=== PATIENT | female | born 1970 | race Caucasian/White ===

== ENCOUNTER 2018-01-20 10:58 | Emergency (ER) | payer OTHER ==
--- NOTE | 2018-01-20 11:37 | ED ---
HPI Chest Pain - HPI Summary HPI Summary: Patient is a 47 y/o female who presents to the ED c/o CP. She states she was sitting down at work this morning when she suddenly had 5-6/10 CP that radiated to her jaw, back, and armpits. Patient went to the school nurse who heard an abnormal HR and recommended she come to the ED. She also c/o nausea when standing up and cold hands. Patient denies any vomiting, diaphoresis, or near- syncope. The CP is currently completely resolved. She might have HLD but is unsure. - History of Current Complaint Chief Complaint: EDChestWallPain Hx Obtained From: Patient Onset/Duration: Started Hours Ago - [employer], Resolved Timing: Intermittent Initial Severity: Moderate - 5-6/10 Current Severity: None Pain Intensity: 0 Pain Scale Used: 0-10 Numeric Chest Pain Location: Diffuse Chest Pain Radiates: Yes Chest Pain Radiates To:: Back, Jaw, Other - Armpit Aggravating Factor(s): Nothing Alleviating Factor(s): Spontaneous Resolution Associated Signs and Symptoms: Positive: Chest Pain, Recent Stress, Nausea. Negative: Syncope, Diaphoresis, Vomiting Related History: Obesity - Allergy/Home Medications Allergies/Adverse Reactions: Allergies Allergy/AdvReac Type Severity Reaction Status Date / Time MS Shellfish Allergy Allergy throat Verified 08/17/14 06:47 [Shellfish Allergy] closes/itchiness in throat Home Medications: Home Medications Escitalopram (NF) [Lexapro 20 mg (NF)] 20 mg PO DAILY 01/20/18 [History Confirmed 01/20/18] Omeprazole CAP* [Prilosec CAP* 20 MG] 20 mg PO DAILY 01/20/18 [History Confirmed 01/20/18] PMH/Surg Hx/FS Hx/Imm Hx Endocrine/Hematology History: Denies: Hx Diabetes Cardiovascular History: Denies: Hx Hypertension Respiratory History: Reports: Hx Sleep Apnea - DOESN'T USE CPAP GI History: Reports: Hx Gastroesophageal Reflux Disease - ON DAILY MEDS Sensory History: Reports: Hx Contacts or Glasses - GLASSES Opthamlomology History: Reports: Hx Contacts or Glasses - GLASSES Neurological History: Reports: Hx Migraine - USUALLY 1-2 x YEAR, USES ZOMEG Psychiatric History: Reports: Hx Anxiety, Hx Depression - ON DAILY LEXAPRO - Surgical History Surgery Procedure, Year, and Place: 2007 [facility]. 2002 RT [facility] Hx Anesthesia Reactions: No Infectious Disease History: No Infectious Disease History: Denies: Traveled Outside the [place] in Last 30 Days - Family History Known Family History: Positive: Cardiac Disease, Diabetes, Other - [place] - Social History Alcohol Use: Rare Alcohol Amount: FEW DRINKS/YEAR Hx Substance Use: No Substance Use Type: Reports: None Hx Tobacco Use: Yes Smoking Status (MU): Former Smoker Type: Cigarettes Amount Used/How Often: 2 PPD Length of Time of Smoking/Using Tobacco: 26 YRS Have You Smoked in the Last Year: No Review of Systems Positive: Other - Cold hands. Negative: Skin Diaphoresis Positive: Chest Pain Positive: Nausea. Negative: Vomiting Negative: Syncope All Other Systems Reviewed And Are Negative: Yes Physical Exam - Summary Physical Exam Summary: VITAL SIGNS: Reviewed. GENERAL: Patient is a well-developed and nourished FEMALE who is lying comfortable in the stretcher. Patient is not in any acute respiratory distress. HEAD AND FACE: No signs of trauma. No ecchymosis, hematomas or skull depressions. No sinus tenderness. EYES: PERRLA, EOMI x 2, No injected conjunctiva, no nystagmus. EARS: Hearing grossly intact. Ear canals and tympanic membranes are within normal limits. MOUTH: Oropharynx within normal limits. NECK: Supple, trachea is midline, no adenopathy, no JVD, no carotid bruit, no c- spine tenderness, neck with full ROM. CHEST: Symmetric, no tenderness at palpation LUNGS: Clear to auscultation bilaterally. No wheezing or crackles. CVS: Regular rate and rhythm, S1 and S2 present, no murmurs or gallops appreciated. ABDOMEN: Soft, non-tender. No signs of distention. No rebound no guarding, and no masses palpated. Bowel sounds are normal. EXTREMITIES: FROM in all major joints, no edema, no cyanosis or clubbing. NEURO: Alert and oriented x 3. No acute neurological deficits. Speech is normal and follows commands. SKIN: Dry and warm Triage Information Reviewed: Yes Vital Signs On Initial Exam: Initial Vitals Temp Pulse Resp BP Pulse Ox 98 F 73 16 169/82 99 01/20/18 11:00 01/20/18 11:00 01/20/18 11:00 01/20/18 11:00 01/20/18 11:00 Vital Signs Reviewed: Yes Diagnostics - Vital Signs Vital Signs Temp Pulse Resp BP Pulse Ox 01/20/18 11:00 98 F 73 16 169/82 99 - Laboratory Result Diagrams: 01/20/18 11:48 01/20/18 11:48 Lab Statement: Any lab studies that have been ordered have been reviewed, and results considered in the medical decision making process. - Radiology CXR Xray Interpretation: No Acute Changes - NO EVIDENCE FOR ACTIVE CARDIOPULMONARY DISEASE. Radiology Interpretation Completed By: Radiologist - EKG 11:27 Cardiac Rate: NL - 67 bpm EKG Rhythm: Sinus Rhythm EKG Interpretation: No ST elevations Chest Pain Course/Dx - Course Assessment/Plan: Patient is a 47 y/o female who presents to the ED c/o CP. She states she was sitting down at work this morning when she suddenly had 5-6/10 CP that radiated to her jaw, back, and armpits. Patient went to the school nurse who heard an abnormal HR and recommended she come to the ED. She also c/ o nausea when standing up and cold hands. Patient denies any vomiting, diaphoresis, or near-syncope. The CP is currently completely resolved. She might have HLD but is unsure. Blood work without any significant abnormality, 2 troponins 4 hours apart as 0.00. EKG shows no ST elevations. Chest x-ray shows no acute cardiopulmonary abnormality. The patient continues to be asymptomatic. She does not have any chest pain at this point. See she doesn't have any comorbidities the patient was discharged home with follow-up with primary care physician. The heart to score is equal to 0. I discussed all the findings and test results with the patient. Patient was instructed to return to the emergency room immediately if any of the symptoms return or worsens. Plan of care was discussed with the patient and understands and agrees. All questions were answered at patient satisfaction. There were no further complaints or concerns. Lung exam before discharge: CTA B/L. Good air exchange. No wheezing or crackles heard. CVS: S1 and S2 present. No murmurs appreciated. Patient is alert and oriented x 3. Patient is hemodynamically stable. Patient will be discharged home with follow up PCP in the next 2-3 days - Chest Pain Differential Diagnosis/HQI/PQRI: Acute VA, ACS, Angina, CHF, Chest Wall, GI Disease, Lower Respiratory Infection, Pulmonary Edema - Diagnoses Provider Diagnoses: Atypical chest pain Discharge - Sign-Out/Discharge Documenting (check all that apply): Patient Departure - Discharge - Discharge Plan Condition: Stable Disposition: HOME Patient Education Materials: Chest Pain (ED) Referrals: Samuel Ramirez MD [Primary Care Provider] - 3 Days Additional Instructions: FOLLOW UP WITH YOUR PRIMARY CARE PROVIDER WITHIN ONE WEEK FOR HIGH BLOOD PRESSURE NOTED TODAY. RETURN TO THE ED FOR ANY WORSENING OR NEW SYMPTOMS. - Billing Disposition and Condition Condition: STABLE Disposition: Home - Attestation Statements Document Initiated by Stephanieibe: Yes Documenting Scribe: Elizabeth Live Provider For Whom Devin is Documenting (Include Credential): Maximiliano Hancock MD Scribe Attestation: Elizabeth Forbes, scribed for Maximiliano Hancock MD on 01/21/18 at 0943. Scribe Documentation Reviewed: Yes Provider Attestation: The documentation as recorded by the Elizabeth patton accurately reflects the service I personally performed and the decisions made by , Maximiliano Hancock MD
[2018-01-20 12:05] LABS: ABS Basophils 0 10^3/ul (0-0.2); ABS Eosinophils 0.2 10^3/ul (0-0.6); ABS Lymphocytes 2.4 10^3/ul (1.0-4.8); ABS Monocytes 0.8 10^3/ul (0-0.8); ABS Neutrophils 7.1 10^3/ul (1.5-7.7); ABS Nucleated RBC 0 10^3/ul; Eosinophil % 1.5 % (0-6); Hematocrit 38 % (35-47); Hemoglobin 12.8 g/dl (12.0-16.0); Lymphocyte % 22.5 % (25-47); Mean Corpuscular HGB Conc 34 g/dl (31-36); Mean Corpuscular Hemoglobin 30 pg (27-31); Mean Corpuscular Volume 90 fL (80-97); Mean Platelet Volume 8.3 um3 (7.4-10.4); Nucleated Red Blood Cells % 0; Platelet Count 319 10^3/ul (150-450); Red Blood Count 4.22 10^6/ul (4.00-5.40); Red Cell Distribution Width 15 % (10.5-15); White Blood Count 10.6 10^3/ul (3.5-10.8)
--- NOTE | 2018-01-20 12:05 | RAD ---
INDICATION: Chest pain. COMPARISON: There are no relevant prior studies available for comparison. TECHNIQUE: Dual-energy PA and lateral views of the chest were obtained. FINDINGS: The heart is within normal limits in size. Mediastinal and hilar contours appear within normal limits. The lungs are hyperinflated and clear. No pleural effusion or pneumothorax is seen. IMPRESSION: NO EVIDENCE FOR ACTIVE CARDIOPULMONARY DISEASE.
[2018-01-20 12:27] LABS: EGFR Non-African American 100.9 (>60)
[2018-01-20 15:13] VITALS: BP 172/95
== END 2018-01-20 15:20 | disposition home or self-care (01) ==
LOC: ED 10:58
DX: R07.89 Other chest pain (principal); Z87.891 Personal history of nicotine dependence; E66.9 Obesity, unspecified
CPT/HCPCS: 36415; 71046; 80053; 82550; 82553; 83605; 83880; 84443; 84484; 85025; 93005; 99283